=== PATIENT | female | born 1980 | race Caucasian/White ===

== ENCOUNTER 2023-11-04 20:47 | Outpatient (OUT) | payer BC, SELFPAY | END 2023-11-04 20:48 | disposition home or self-care (01) | LOC: SLEEP 20:47 | PROVIDERS: PCP Psychiatry & Neurology Neurology; Visit Provider Psychiatry & Neurology Neurology | DX: G47.411 Narcolepsy with cataplexy (principal) | CPT/HCPCS: 95805; 95810 ==